=== PATIENT | female | born 1970 | race Two or more races ===

== ENCOUNTER 2016-09-28 23:53 | Emergency (ER) | payer MEDICAID ==
[~2016-09-28] VITALS: Ht 149.9 cm; Wt 61.3 kg
[2016-09-28 23:57] VITALS: BP 122/78
--- NOTE | 2016-09-29 00:18 | NUR ---
PT TAKEN TO [facility]
--- NOTE | 2016-09-29 00:34 | NUR ---
Dr. Anand evaluating patient
--- NOTE | 2016-09-29 00:50 | NUR ---
46 Y/O F W/C/O R SHOULDER PAIN X 2 WKS ON AND OFF. NO S/S OF DISTTRESS NOTED AT THIS MOMENT. PT HAS BEING EVALUATED BY DANETTE CARLSON.
[2016-09-29 00:56] VITALS: BP 116/66
--- NOTE | 2016-09-29 00:56 | NUR ---
Patient discharged with v/s stable. Written and verbal after care instructions given and explained. Patient alert, oriented and verbalized understanding of instructions. Ambulatory with steady gait. All questions addressed prior to discharge. ID band removed. Patient advised to follow up TO THIS ER IN 2 DAYS OR SOONER IF CONDITION WORSENS. Rx of MOTRIN AND ROBAXIN given. Patient educated on indication of medication including possible reaction and side effects. Opportunity to ask questions provided and answered.
== END 2016-09-29 00:56 | disposition home or self-care (01) ==
LOC: MED 23:53
DX: M25.511 Pain in right shoulder (principal); R03.0 Elevated blood-pressure reading, without diagnosis of hypertension
CPT/HCPCS: 73030; 99284

== ENCOUNTER 2016-12-22 05:48 | Inpatient (IN) | payer MEDICAID ==
[~2016-12-22] VITALS: Ht 152.4 cm; Wt 60.8 kg
[2016-12-22 05:58] VITALS: BP 114/67
[2016-12-22] MEDS ORDERED: oxyCODONE/APAP 5/325 MG 1 TAB TAB PO ONE (06:30)
[2016-12-22 07:17] LABS: BASOPHILS # (AUTO) 0.1 K/uL (0.00-0.22); BASOPHILS % (AUTO) 1.4 % (0.0-2.0); EOSINOPHILS # (AUTO) 0.4 K/uL (0-0.4); EOSINOPHILS % (AUTO) 5.7 % (0.0-4.0); HEMATOCRIT 38.7 % (36-48); LYMPHOCYTES # (AUTO) 1.4 K/uL (2.5-16.5); MEAN CORPUSCULAR HEMOGLOBIN 28 pg (27-31); MEAN CORPUSCULAR HGB CONC 34 g/dL (33-37); MEAN CORPUSCULAR VOLUME 85 fL (80-94); MONOCYTES # (AUTO) 0.8 K/uL (0.8-1.0); MONOCYTES % (AUTO) 11.6 % (1.7-9.3); NEUTROPHILS # (AUTO) 4.1 K/uL (1.8-7.7); NEUTROPHILS % (AUTO) 61.3 % (42.2-75.2); PLATELET COUNT (AUTO) 245 K/uL (140-450); RED BLOOD CELL COUNT(AUTO) 4.57 MIL/uL (4.20-5.40); RED CELL DISTRIBUTION WIDTH 17.3 % (11.6-13.7); WHITE BLOOD COUNT (AUTO) 6.8 K/uL (4.8-10.8)
[2016-12-22 07:29] LABS: ANION GAP 11.9 (8-16); CALCIUM 8.8 mg/dL (8.5-10.1); CARBON DIOXIDE 26.2 mmol/L (21-32); CREATININE 0.6 mg/dL (0.6-1.3); POTASSIUM 4.1 mmol/L (3.5-5.1)
[2016-12-22 07:46] LABS: ALBUMIN 2.8 g/dL (3.4-5.0); TOTAL BILIRUBIN 0.7 mg/dL (0.0-1.0); TOTAL PROTEIN, SERUM 7.8 g/dL (6.4-8.2)
[2016-12-22 08:02] LABS: APPEARANCE,URINE CLEAR (CLEAR); BILIRUBIN,URINE 1+ (NEGATIVE); BLOOD, URINE 3+ (NEGATIVE); COLOR,URINE YELLOW (YELLOW); LEUKOCYTE ESTERASE ,URINE NEGATIVE (NEGATIVE); NITRITE, URINE NEGATIVE (NEGATIVE); PROTEIN,URINE NEGATIVE (NEGATIVE); UGLUCOSE NEGATIVE (NEGATIVE); UROBILINOGEN,URINE 0.2 EU/dL (0.2 - 1)
[2016-12-22] MEDS ORDERED: MORPHINE SULFATE 2 MG/ML SYR IVP PRN (08:05)
[2016-12-22] MEDS ORDERED: ACETAMINOPHEN 325 MG TAB PO PRN (08:05)
[2016-12-22] MEDS ORDERED: DOCUSATE SODIUM 100 MG GELCAP PO PRN (08:05)
[2016-12-22] MEDS ORDERED: ONDANSETRON 4 MG/2 ML VIAL IM/IVP PRN (08:05)
[2016-12-22 08:45] VITALS: BP 107/67
[2016-12-22 08:50] LABS: BACTERIA,URINE None Seen /HPF (None Seen); ICTOTEST NEGATIVE (NEGATIVE); RBC,URINE 0-5 (RARE) /HPF (0-5); WBC,URINE 0-5 (RARE) /HPF (0-5)
[2016-12-22 08:51] LABS: SQUAMOUS EPITHELIAL CELL,UR 0-3 (FEW) /LPF (0-3 (FEW))
[2016-12-22 08:52] LABS: CHOL/HDL RATIO 4.8 (1-4.5); FREE T4 (FREE THYROXINE) 0.87 ng/dL (0.76-1.46); MAGNESIUM 1.8 mg/dL (1.8-2.4); PHOSPHORUS 3.8 mg/dL (2.5-4.9); THYROID STIMULATING HORMONE 2.43 uIU/mL (0.34-3.74)
[2016-12-22 08:59] LABS: PROTHROMBIN TIME 10.1 secs (10.8-13.4)
[2016-12-22] MEDS: NACL 0.9% 1,000 ML IV SCH (09:19)
[2016-12-22 11:45] VITALS: BP 114/66
[2016-12-22 16:00] VITALS: BP 118/69
[2016-12-22] MEDS: HYDROcodone/APAP 7.5/325 MG 1 TAB PO PRN (17:18)
[2016-12-22 20:00] VITALS: BP 102/54
[2016-12-23] VITALS: BP 95/49
[2016-12-23] MEDS: NACL 0.9% 1,000 ML IV SCH ×3 (00:45→23:16)
[2016-12-23 04:00] VITALS: BP 106/61
[2016-12-23 07:05] LABS: ALBUMIN 2.5 g/dL (3.4-5.0); CALCIUM 8.5 mg/dL (8.5-10.1); CARBON DIOXIDE 27.3 mmol/L (21-32); CREATININE 0.6 mg/dL (0.6-1.3); POTASSIUM 4.3 mmol/L (3.5-5.1); TOTAL BILIRUBIN 1.1 mg/dL (0.0-1.0); TOTAL PROTEIN, SERUM 7.2 g/dL (6.4-8.2)
[2016-12-23 08:00] VITALS: BP 99/55
[2016-12-23 12:00] VITALS: BP 108/62
[2016-12-23 12:49] LABS: HEPATITIS A ANTIBODY IGM Negative (Negative); HEPATITIS B CORE AB TOTAL Negative (Negative); HEPATITIS B CORE, IGM Negative (Negative); HEPATITIS B SURFACE AB Non Reactive (.); HEPATITIS B SURFACE ANTIGEN Negative (Negative); HEPATITIS C VIRUS ANTIBODY 0.2 s/co ratio (0.0-0.9)
[2016-12-23 12:49] LABS: T4 (THYROXINE) 7.7 ug/dL (4.5-12.0)
[2016-12-23 13:20] LABS: HEPATITIS A ANTIBODY TOTAL Positive (Negative)
[2016-12-23] MEDS ORDERED: MAGNESIUM CITRATE 300 ML BTL PO SCH (17:35)
[2016-12-23] MEDS ORDERED: AMPICILLIN/SULBACTAM 1.5 GM VIAL ONE ×2 (17:48→23:32)
[2016-12-23] MEDS: AMPICILLIN/SULBACTAM 1.5 GM in NACL 0.9% 50 ML IV SCH (18:00)
[2016-12-23] MEDS: SENNA 8.6 MG TAB PO SCH (22:50)
[2016-12-24] VITALS (9 sets, daily range): BP systolic 90–108; BP diastolic 50–60
[2016-12-24] MEDS: AMPICILLIN/SULBACTAM 1.5 GM in NACL 0.9% 50 ML IV SCH ×4 (00:18→18:25)
[2016-12-24] MEDS ORDERED: AMPICILLIN/SULBACTAM 1.5 GM VIAL ONE (06:12)
[2016-12-24] MEDS: SENNA 8.6 MG TAB PO SCH ×2 (09:20→20:54)
[2016-12-24] MEDS ORDERED: ONDANSETRON 4 MG/2 ML VIAL IVP ONE (12:04)
[2016-12-24] MEDS ORDERED: PROPOFOL 200 MG/20 ML VIAL IV ONE (12:04)
[2016-12-24] MEDS ORDERED: fentaNYL 0.05 MG/ML VIAL ONE (12:13)
[2016-12-24] MEDS ORDERED: MIDAZOLAM 2 MG/2 ML VIAL ONE (12:13)
[2016-12-24] MEDS ORDERED: GLUCAGON 1 MG VIAL ONE (13:55)
[2016-12-24] MEDS: MORPHINE SULFATE 2 MG/ML SYR IVP PRN ×2 (15:30→18:30)
[2016-12-24] MEDS: HYDROcodone/APAP 7.5/325 MG 1 TAB PO PRN (20:53)
[2016-12-25] VITALS: BP 131/69
[2016-12-25] MEDS: AMPICILLIN/SULBACTAM 1.5 GM in NACL 0.9% 50 ML IV SCH ×2 (00:01→05:35)
[2016-12-25] MEDS: NACL 0.9% 1,000 ML IV SCH (03:54)
[2016-12-25] MEDS: MORPHINE SULFATE 2 MG/ML SYR IVP PRN ×2 (03:55→08:31)
[2016-12-25] MEDS: HYDROcodone/APAP 7.5/325 MG 1 TAB PO PRN ×3 (05:34→21:52)
[2016-12-25 07:04] LABS: BASOPHILS % (AUTO) 0.2 % (0.0-2.0); EOSINOPHILS # (AUTO) 0.1 K/uL (0-0.4); EOSINOPHILS % (AUTO) 0.6 % (0.0-4.0); HEMATOCRIT 39.2 % (36-48); LYMPHOCYTES # (AUTO) 0.6 K/uL (2.5-16.5); LYMPHOCYTES % (AUTO) 4.5 % (20.5-51.1); MEAN CORPUSCULAR HEMOGLOBIN 28 pg (27-31); MEAN CORPUSCULAR HGB CONC 33 g/dL (33-37); MEAN CORPUSCULAR VOLUME 86 fL (80-94); MONOCYTES # (AUTO) 0.4 K/uL (0.8-1.0); MONOCYTES % (AUTO) 3.1 % (1.7-9.3); NEUTROPHILS # (AUTO) 11.3 K/uL (1.8-7.7); NEUTROPHILS % (AUTO) 91.6 % (42.2-75.2); PLATELET COUNT (AUTO) 231 K/uL (140-450); RED BLOOD CELL COUNT(AUTO) 4.57 MIL/uL (4.20-5.40); RED CELL DISTRIBUTION WIDTH 16.2 % (11.6-13.7); WHITE BLOOD COUNT (AUTO) 12.4 K/uL (4.8-10.8)
[2016-12-25 07:57] LABS: ANION GAP 10.9 (8-16); CALCIUM 8.6 mg/dL (8.5-10.1); CARBON DIOXIDE 25.9 mmol/L (21-32); CREATININE 0.5 mg/dL (0.6-1.3); POTASSIUM 3.8 mmol/L (3.5-5.1)
[2016-12-25 08:00] VITALS: BP 118/65
[2016-12-25] MEDS ORDERED: HYDROcodone/APAP 10/325 MG 1 TAB TAB PO PRN (08:35)
[2016-12-25] MEDS: SENNA 8.6 MG TAB PO SCH ×2 (09:56→21:00)
[2016-12-25] MEDS: DEXT 5% / NACL 0.45% 1,000 ML IV SCH ×2 (10:50→20:50)
[2016-12-25] MEDS ORDERED: SULBACTAM IV SCH (12:00)
[2016-12-25] MEDS ORDERED: NACL 0.9% IV SCH (12:00)
[2016-12-25] MEDS ORDERED: AMPICILLIN IV SCH (12:00)
[2016-12-25] MEDS: AMPICILLIN/SULBACTAM 3 GM in NACL 0.9% 100 ML IV SCH ×2 (12:00→18:08)
[2016-12-25] MEDS: MORPHINE SULFATE 4 MG/ML SYR IVP PRN ×3 (12:49→20:08)
[2016-12-25 16:00] VITALS: BP 116/55
[2016-12-25 20:35] VITALS: BP 116/68
== END 2016-12-25 23:00 | disposition short-term general hospital (02) | DRG 791 ==
LOC: MED 05:48 → MTU 08:10
PROVIDERS: ADMIT Student in an Organized Health Care Education/Training Program; ATTEND Student in an Organized Health Care Education/Training Program
PROC: 0FPB8DZ Removal of Intraluminal Device from Hepatobiliary Duct, Via Natural or Artificial Opening Endoscopic (ICD-10-PCS; principal; 2016-12-25)
PROC: 0FC98ZZ Extirpation of Matter from Common Bile Duct, Via Natural or Artificial Opening Endoscopic (ICD-10-PCS; 2016-12-25)
PROC: 0F798DZ Dilation of Common Bile Duct with Intraluminal Device, Via Natural or Artificial Opening Endoscopic (ICD-10-PCS; 2016-12-25)
DX: T85.590A Other mechanical complication of bile duct prosthesis, initial encounter (principal); E43 Unspecified severe protein-calorie malnutrition; C78.7 Secondary malignant neoplasm of liver and intrahepatic bile duct; C25.0 Malignant neoplasm of head of pancreas; E87.1 Hypo-osmolality and hyponatremia; K86.1 Other chronic pancreatitis; Z60.2 Problems related to living alone; D72.829 Elevated white blood cell count, unspecified; R74.0 Nonspecific elevation of levels of transaminase and lactic acid dehydrogenase [LDH]; K80.50 Calculus of bile duct without cholangitis or cholecystitis without obstruction; Z71.3 Dietary counseling and surveillance; Z68.26 Body mass index [BMI] 26.0-26.9, adult; Y83.8 Other surgical procedures as the cause of abnormal reaction of the patient, or of later complication, without mention of misadventure at the time of the procedure; Y92.89 Other specified places as the place of occurrence of the external cause
CPT/HCPCS: 36415; 71010; 74020; 74330; 76705; 80048; 80053; 81001; 81025; 82150; 82378; 83036; 83690; 83735; 83880; 84100; 84436; 84439; 84443; 84479; 84703; 85025; 85610; 85730; 86301; 86704; 86706; 86708; 86709; 86803; 87081; 87340; 93005; 99285; C1727; J0295; J1610; J2250; J2270; J2405; J2704; J3010; J7030; Q0092; Q9965; Q9967